=== PATIENT | female | born 1950 | race African-American/Black ===

== ENCOUNTER 2016-09-21 12:08 | Emergency (ER) | payer MEDICARE, MEDICAID ==
[~2016-09-21 12:08] MED LIST: ALLO100T PO; AMLO1CAP15 PO; ASPI325T4 PO; BYSTOLIC10 MG PO; CITA20TA5 PO; FERR325T58 PO; FURO80TA72 PO; GLIP-24 PO; LISI-334 PO; OMEP40CA5 PO; TIZA4TAB PO
[2016-09-21 12:31] VITALS: BP 174/75
--- NOTE | 2016-09-21 12:48 | PHYS DOC ---
Past Medical History Past Medical History: Anemia, Anxiety, CHF, Depression, Diabetes-Type II, GERD , High Cholesterol, Hypertension Past Surgical History: Tubal ligation, Other Additional Past Surgical Histo: KIDNEY MASS SX Alcohol Use: Rarely Drug Use: None Adult General Chief Complaint Chief Complaint: HYPERTENSION HPI HPI 65 yo female who's had some difficulty controlling her blood pressure at home. She states she took it earlier today and it was 150/90. She states she has a mild headache with her symptoms. She denies any chest pain or SOB. She denies any nausea or vomiting. She states she checks her blood pressure in the AM everyday and it usually runs in the 140's systolic and so she was concerned. She states she is compliant with her medications. She is in no acute distress at this time and speaking in complete sentences. Review of Systems Review of Systems Constitutional: Denies fever or chills [] Eyes: Denies change in visual acuity, redness, or eye pain [] HENT: Denies nasal congestion or sore throat [] Respiratory: Denies cough or shortness of breath [] Cardiovascular: No additional information not addressed in HPI [] GI: Denies abdominal pain, nausea, vomiting, bloody stools or diarrhea [] : Denies dysuria or hematuria [] Musculoskeletal: Denies back pain or joint pain [] Integument: Denies rash or skin lesions [] Neurologic: Denies headache, focal weakness or sensory changes [] Endocrine: Denies polyuria or polydipsia [] Allergies Allergies Allergies Coded Allergies Type Severity Reaction Last Updated Verified No Known Drug Allergies 05/10/14 No Physical Exam Physical Exam Constitutional: Well developed, well nourished, no acute distress, non-toxic appearance. [] HENT: Normocephalic, atraumatic, bilateral external ears normal, oropharynx moist, no oral exudates, nose normal. [] Eyes: PERRLA, EOMI, conjunctiva normal, no discharge. [] Neck: Normal range of motion, no tenderness, supple, no stridor. [] Cardiovascular:Heart rate regular rhythm, no murmur [] Lungs & Thorax: Bilateral breath sounds clear to auscultation [] Abdomen: Bowel sounds normal, soft, no tenderness, no masses, no pulsatile masses. [] Skin: Warm, dry, no erythema, no rash. [] Back: No tenderness, no CVA tenderness. [] Extremities: No tenderness, no cyanosis, no clubbing, ROM intact, no edema. [] Neurologic: Alert and oriented X 3, normal motor function, normal sensory function, no focal deficits noted. [] Psychologic: Affect normal, judgement normal, mood normal. [] Current Patient Data Vital Signs Vital Signs Date Time Temp Pulse Resp B/P Pulse Ox O2 Delivery O2 Flow Rate FiO2 09/21/16 12:31 98.5 79 20 174/75 98 Room Air 98.5 EKG EKG [] Radiology/Procedures Radiology/Procedures [] Course & Med Decision Making Course & Med Decision Making Pertinent Labs and Imaging studies reviewed. (See chart for details) This 65-year-old female who is complaining of an elevated blood pressure that she took at home of 150/90 is basically asymptomatic. She states she has in very mild headache but currently is having no symptoms. Her daughter at bedside states she has an appointment scheduled this afternoon with her primary care doctor to have her blood pressure rechecked. I confirmed this with Dr. Tello over the phone and the patient will be discharged directly to the primary care office to have her blood pressure reevaluated. There is no indication at this time to for any form any laboratory workup or imaging. Dragon Disclaimer Dragon Disclaimer This electronic medical record was generated, in whole or in part, using a voice recognition dictation system. Departure Departure Impression: Primary Impression: Elevated blood pressure reading Disposition: HOME, SELF-CARE Admitting Physician: Other Condition: STABLE Referrals: TRISTAN TELLO MD (PCP) Patient Instructions: Managing Your High Blood Pressure Additional Instructions: Please proceed directly to your primary care office as discussed to have your blood pressure rechecked and evaluated. Return to the ER if you develop any worsening of your symptoms. ZBIGNIEW LEVY DO Sep 21, 2016 12:48
== END 2016-09-21 12:53 | disposition home or self-care (01) ==
LOC: ER 12:08
DX: I11.0 Hypertensive heart disease with heart failure (principal); I50.9 Heart failure, unspecified; E11.9 Type 2 diabetes mellitus without complications; E78.00 Pure hypercholesterolemia, unspecified; F32.9 Major depressive disorder, single episode, unspecified; K21.9 Gastro-esophageal reflux disease without esophagitis; F41.9 Anxiety disorder, unspecified
CPT/HCPCS: 99281

== ENCOUNTER → 2018-05-09 | Outpatient (CLI) | payer MEDICARE, MEDICAID ==
[~2018-05-09] MED LIST changes: -ASPI325T4 PO; +ASPI325T8 PO; -CITA20TA5 PO; +CITA20TA6 PO
--- NOTE | 2018-05-09 10:56 | RAD ---
EXAM: Chest, 2 views. HISTORY: Renal neoplasm. COMPARISON: 05/10/2014 FINDINGS: Frontal and lateral views of the chest are obtained. There is no infiltrate, pleural effusion or pneumothorax. There is a stable prominent cardiac silhouette. There is a calcified granuloma within the right lung. IMPRESSION: No acute pulmonary finding or evidence of pulmonary metastatic disease. Electronically signed by: Melinda Davila MD (05/09/2018 10:53 AM) [facility]
--- NOTE | 2018-05-09 14:53 | RAD ---
MRI abdomen without contrast dated 05/09/2018. Comparison made to CT dated 05/10/2014. Clinical data indication: History of right kidney neoplasm with partial nephrectomy. Follow-up renal cysts. TECHNIQUE: Multiplane multiplanar multisequence MR imaging of abdomen performed without the administration of intravenous contrast. Single shot fast echo imaging in the axial and coronal plane along with thin and phase gradient imaging and diffusion-weighted sequences. FINDINGS: Study is limited in the absence of intravenous contrast. There are multiple round well-circumscribed T2 hyperintense nodular foci scattered throughout each kidney that are most consistent with cysts. There is a lesion at the posterior right kidney midpole that is bilobed in appearance and measures up to 3.2 cm in size that shows some T1 hyperintensity and layering signal at its dependent portion. Ill-defined lesion at the right kidney upper pole measures up to 2.6 cm in size and is heterogeneous but hypointense on T2 and T1-weighted images, limited in evaluation in the absence of contrast. These lesions were not definitely present on the prior CT. On the left, there is a heterogeneous collection or mass at the midpole left kidney anteriorly that measures 3.2 x 7.9 cm transverse and AP dimensions. This lesion appears to be thick-walled and shows internal fatty content. This is near the site of prior partial nephrectomy. There is also some heterogeneous nodularity along the anterolateral left kidney midpole that could be postsurgical but is not well evaluated in the absence of contrast.. Otherwise no suspicious mass on the left. No hydronephrosis. No retroperitoneal lymphadenopathy. Imaged portions of the liver and spleen are unremarkable. Pancreas unremarkable. Adrenal glands unremarkable. No ascites. IMPRESSION: 1. Evidence of prior partial nephrectomy on the left. There is a large heterogeneous masslike area of altered signal along the anterior lateral margin of the left kidney midpole that shows internal fatty content. This most likely represents fat necrosis from prior surgery, although there is some heterogeneous irregularity of the lateral cortex and a developing mass cannot be completely excluded. 2. There are additional complex nodular foci at the upper pole right kidney and midpole right kidney that are indeterminate and could represent hemorrhagic or proteinaceous cysts, however solid mass lesions cannot be excluded. If the patient is able, dedicated renal MRI with and without contrast would better evaluate. Alternatively, six-month interval follow-up suggested. 3. Bilateral simple renal cysts Electronically signed by: Jose Taylor MD (05/09/2018 2:50 PM) [id number]
== END | disposition home or self-care (01) ==
LOC: MRI 09:07
PROVIDERS: ATTEND Urology
DX: C64.1 Malignant neoplasm of right kidney, except renal pelvis (principal); N28.1 Cyst of kidney, acquired; J84.10 Pulmonary fibrosis, unspecified; Z90.5 Acquired absence of kidney
CPT/HCPCS: 71046; 74181

== ENCOUNTER → 2018-12-02 | Outpatient (CLI) | payer MEDICARE, MEDICAID ==
--- NOTE | 2018-12-02 16:38 | RAD ---
Examination: ABDOMEN WO CONTRAST History: Partial left nephrectomy. Comparison/Correlation: 05/09/2018 MRI abdomen without contrast Findings: Multisequence coronal and axial images of the upper abdomen at the level of the kidneys were obtained. Complex cysts bilaterally are present and stable. Fluid level within a right renal dominant cyst is noted. Septation of this cyst is evident but similar to the previous exam. This cyst measures 3.8 cm x 2.8 cm. Low signal intensity structure is at the superior right renal pole which probably represent hemorrhagic cysts are stable. There is a fat signal structure again seen along the anterior aspect of the left renal interpolar region extending anteriorly. This has remained stable in size or morphology since the prior exam possibly representing fat necrosis. It measures 7.9 cm x 3.1 cm in the axial plane. This is at approximately the site of the previous partial nephrectomy. No hydronephrosis. No enlarged upper abdominal lymph nodes. No ascites. Liver and spleen are unremarkable with for purposes of this exam. Partially visualized liver and spleen are unremarkable. The visualized gallbladder is unremarkable on this exam which is not optimized for its assessment. Pancreas is unremarkable. Common bile duct is normal diameter. Impression: Bilateral renal lesions are stable. No suspicious renal process in the interval. Continued interval follow-up in one year should be considered to assess assess continued stability of the right renal septated cystic structure. Electronically signed by: Be Davis MD (12/02/2018 4:35 PM) [facility]
== END | disposition home or self-care (01) ==
LOC: MRI 10:27
PROVIDERS: ATTEND Urology
DX: C64.2 Malignant neoplasm of left kidney, except renal pelvis (principal); N28.1 Cyst of kidney, acquired; Z90.5 Acquired absence of kidney
CPT/HCPCS: 74181